=== PATIENT | female | born 1945 | race Two or more races ===

== ENCOUNTER → 2017-01-12 | Outpatient (CLI) | payer MEDICARE, MEDICAID ==
[~2017-01-12] MED LIST: ALEN70TA5 PO; AMLO10TA2 PO; ATOR20TA9 PO; GEMF600T3 PO; LISI-170 PO; METF500T4 PO; OMEP-110 PO
[2017-01-12 11:46] LABS: ASPARTATE AMINO TRANSFERASE 15 U/L (15-37); BLOOD UREA NITROGEN 12 mg/dL (7-18)
== END | disposition home or self-care (01) ==
LOC: STAR 10:22
PROVIDERS: ATTEND Obstetrics & Gynecology Female Pelvic Medicine and Reconstructive Surgery
DX: Z01.818 Encounter for other preprocedural examination (principal); N39.3 Stress incontinence (female) (male); N81.10 Cystocele, unspecified; R10.2 Pelvic and perineal pain
CPT/HCPCS: 36415; 80053; 93005

== ENCOUNTER 2017-01-24 05:20 | Day surgery (SDC) | payer MEDICARE, MEDICAID ==
[2017-01-12 10:58] VITALS: BP 173/82
[~2017-01-24] VITALS: Ht 149.9 cm; Wt 64.0 kg
[2017-01-24] MEDS ORDERED: LACTATED RINGERS 1,000 ML IV SCH (06:26)
[2017-01-24] MEDS ORDERED: LIDOCAINE 1%, 2ML SQ PRN (06:30)
[2017-01-24] MEDS ORDERED: NEOMY/POLYMYXIN B GU IRR. 1 ML IRRIG ONE (06:54)
[2017-01-24] MEDS ORDERED: BUPIVACAINE/PF 0.25% ONE (06:54)
[2017-01-24] MEDS ORDERED: EPINEPHRINE 1 MG/ML, 1ML ONE (06:54)
[2017-01-24] MEDS ORDERED: MIDAZOLAM 1 MG/ML, 2ML ONE (07:15)
[2017-01-24] MEDS ORDERED: FENTANYL PF 250 MCG/5ML ONE (07:15)
[2017-01-24] MEDS ORDERED: PROPOFOL 10 MG/ML, 20ML ONE (07:30)
[2017-01-24] MEDS ORDERED: CEFAZOLIN 1,000 MG ONE (07:30)
[2017-01-24] MEDS ORDERED: GLYCOPYRROLATE 0.2MG/1ML ONE (07:30)
[2017-01-24] MEDS ORDERED: ROCURONIUM 10 MG/ML ONE (07:30)
[2017-01-24] MEDS ORDERED: SUCCINYLCHOLINE 20 MG/ML, 10ML ONE (07:30)
[2017-01-24] MEDS ORDERED: DEXAMETHASONE 4 MG/ML, 1ML ONE (07:30)
[2017-01-24] MEDS ORDERED: NEOSTIGMINE 1 MG/ML, 10ML ONE (07:30)
[2017-01-24] MEDS ORDERED: ONDANSETRON 2MG/ML, 2ML ONE (07:30)
[2017-01-24] MEDS ORDERED: HYDROmorphone 1 MG/ML, 1ML IV PRN (08:00)
[2017-01-24] MEDS ORDERED: ONDANSETRON 2MG/ML, 2ML IVPush PRN (08:00)
[2017-01-24] MEDS ORDERED: OXYcodone 5 MG/5 ML ORAL.SOL UDC PO PRN (08:00)
[2017-01-24] MEDS ORDERED: MEPERIDINE/PF 25MG/0.5ML IVPush PRN (08:00)
[2017-01-24] MEDS ORDERED: LABETALOL 5MG/ML, 20ML IV PRN (08:00)
[2017-01-24] MEDS ORDERED: ALBUTEROL SULFATE 2.5 MG/3 ML NPPB PRN (08:00)
[2017-01-24] MEDS ORDERED: MIDAZOLAM 1 MG/ML, 2ML IV PRN (08:00)
[2017-01-24] MEDS ORDERED: PROMETHAZINE 25 MG/ML, 1ML IV PRN (08:00)
[2017-01-24] MEDS ORDERED: ACETAMINOPHEN 325 MG TABLET PO PRN (08:00)
[2017-01-24] MEDS ORDERED: hydrALAzine 20 MG/ML, 1ML IV PRN (08:00)
[2017-01-24] MEDS ORDERED: FUROSEMIDE 20 MG/2 ML ONE (08:30)
[2017-01-24] MEDS ORDERED: OXYcodone 5 MG/5 ML ORAL.SOL UDC ONE (10:17)
[2017-01-24] MEDS ORDERED: FENTANYL PF 100 MCG/2ML ONE (10:17)
[2017-01-24] MEDS: FENTANYL PF 100 MCG/2ML IV PRN ×2 (10:18→10:26)
== END 2017-01-24 14:15 | disposition home or self-care (01) ==
LOC: OUT 05:20
PROVIDERS: ATTEND Obstetrics & Gynecology Female Pelvic Medicine and Reconstructive Surgery
DX: N81.3 Complete uterovaginal prolapse (principal); N39.46 Mixed incontinence; I10 Essential (primary) hypertension; K21.9 Gastro-esophageal reflux disease without esophagitis; E11.9 Type 2 diabetes mellitus without complications; E78.5 Hyperlipidemia, unspecified; Z79.84 Long term (current) use of oral hypoglycemic drugs
CPT/HCPCS: 57265; 57282; 57288; 58552; 82962; 88307; C1771; J0171; J0330; J0690; J1100; J1940; J2250; J2405; J2704; J2710; J3010; J3490; J7120